=== PATIENT | female | born 1985 | race Caucasian/White ===

== ENCOUNTER 2024-09-03 21:17 | Emergency (ER) | payer OTHER ==
[2024-09-03 21:27] VITALS: TEMP 97.5
--- NOTE | 2024-09-03 21:52 | XR ---
EXAMINATION TYPE: XR foot complete LT DATE OF EXAM: 09/03/2024 9:46 PM COMPARISON: None available. CLINICAL INDICATION: Female, 38 years old with history of pain,laceration; [facility] TECHNIQUE: XR foot complete LT examined in the AP, oblique, and lateral projections. FINDINGS: Apparent soft tissue laceration adjacent to the fifth digit metatarsal. No acute fracture or dislocat ion. No unexpected radiopaque foreign body. Enthesophyte along the plantar calcaneal surface. IMPRESSION: No acute osseous abnormality in the left foot. [facility], , 09/03/2024 9:50 PM
--- NOTE | 2024-09-03 21:54 | ED ---
Wound/Laceration HPI - General Chief Complaint: Wound/Laceration Stated Complaint: L Foot Injury Time Seen by Provider: 09/03/24 21:54 Source: patient, RN notes reviewed Mode of arrival: wheelchair Limitations: no limitations - History of Present Illness Initial Comments: 38-year-old female presented to the ER with a chief complaint of a left foot wound. Patient reports she attempted to open the bathroom door and accidentally hit the top of her left foot. She reports a laceration to her left lateral foot. She is not on any blood thinners. Patient states she has never received tetanus vaccination. Patient denies any other injuries. Denies any limited range of motion. No other injuries or complaints at this time. - Related Data Allergies Allergy/AdvReac Type Severity Reaction Status Date / Time amoxicillin Allergy Rash/Hives Verified 09/03/24 21:27 cefaclor [From Ceclor] Allergy Rash/Hives Verified 09/03/24 21:27 erythromycin base Allergy Rash/Hives Verified 09/03/24 21:27 Review of Systems ROS Statement: Those systems with pertinent positive or pertinent negative responses have been documented in the HPI. ROS Other: All systems not noted in ROS Statement are negative. Past Medical History Past Medical History: No Reported History History of Any Multi-Drug Resistant Organisms: None Reported Past Surgical History: No Surgical Hx Reported Past Psychological History: No Psychological Hx Reported Smoking Status: Vaper Past Alcohol Use History: Occasional Past Drug Use History: Marijuana General Exam Limitations: no limitations General appearance: alert, in no apparent distress Respiratory exam: Present: normal lung sounds bilaterally. Absent: respiratory distress, wheezes, rales, rhonchi, stridor Cardiovascular Exam: Present: regular rate, normal rhythm, normal heart sounds. Absent: systolic murmur, diastolic murmur, rubs, gallop, clicks Extremities exam: Present: normal inspection, full ROM, normal capillary refill, other (3 cm flap laceration to left dorsal lateral foot overlying fourth and fifth metatarsal. No active bleeding. Deep structures intact. 2+ left DP and PT pulse. Sensation intact). Absent: tenderness, pedal edema, joint swelling, calf tenderness Neurological exam: Present: alert, oriented X3, CN II-XII intact Skin exam: Present: warm, dry, intact, normal color. Absent: rash Course Vital Signs 09/03/24 09/03/24 21:24 22:55 Temperature 97.5 F L Pulse Rate 78 69 Respiratory 20 22 Rate Blood Pressure 153/95 134/85 O2 Sat by Pulse 99 100 Oximetry Procedures - Laceration Laceration #1 Consent Obtained: verbal consent Indication: laceration Site: foot Size (cm): 3 Description: flap Depth: simple, single layer Anesthetic Used: lidocaine 1%, without epi Anesthesia Technique: local infiltration Amount (mls): 3 Pre-repair: wound explored, irrigated extensively, deep structures intact Type of Sutures: nylon Size of Sutures: 5-0 Number of Sutures: 6 Technique: simple, interrupted Patient Tolerated Procedure: well Medical Decision Making - Medical Decision Making Was pt. sent in by a medical professional or institution (, PA, TRAINING AND DEVELOPMENT PROFESSIONAL, urgent care, hospital, or [facility]...) When possible be specific @ -No Did you speak to anyone other than the patient for history (EMS, parent, family, police, friend...)? What history was obtained from this source @ -No Did you review nursing and triage notes (agree or disagree)? Why? @ -I reviewed and agree with nursing and triage notes Were old charts reviewed (outside hosp., previous admission, EMS record, old EKG, old radiological studies, urgent care reports/EKG's, [facility] records)? Report findings @ -No old charts were reviewed Differential Diagnosis (chest pain, altered mental status, abdominal pain women, abdominal pain men, vaginal bleeding, weakness, fever, dyspnea, syncope, headache, dizziness, GI bleed, back pain, seizure, CVA, palpatations, mental health, musculoskeletal)? @ -Laceration, abrasion, contusion, avulsion, foreign body this list is not meant to be all-inclusive EKG interpreted by me (3pts min.). @ -None done X-rays interpreted by me (1pt min.). @ -Left foot x-ray interpreted by me negative for acute fractures or dislocations. CT interpreted by me (1pt min.). @ -None done U/S interpreted by me (1pt. min.). @ -None done What testing was considered but not performed or refused? (CT, X-rays, U/S, labs)? Why? @ -None What meds were considered but not given or refused? Why? @ -None Did you discuss the management of the patient with other professionals (professionals i.e. , PA, TRAINING AND DEVELOPMENT PROFESSIONAL, lab, RT, psych nurse, social services assistant, industrial controls technician, teacher, financial services officer, case filler)? Give summary @ -No Was smoking cessation discussed for >3mins.? @ -No Was critical care preformed (if so, how long)? @ -No Were there social determinants of health that impacted care today? How? (Homelessness, low income, unemployed, alcoholism, drug addiction, transportation, low edu. Level, literacy, decrease access to med. care, halfway, rehab)? @ -No Was there de-escalation of care discussed even if they declined (Discuss DNR or withdrawal of care, Hospice)? DNR status @ -No What co-morbidities impacted this encounter? (DM, HTN, Smoking, COPD, CAD, Cancer, CVA, ARF, Chemo, Hep., AIDS, mental health diagnosis, sleep apnea, morbid obesity)? @ -None Was patient admitted / discharged? Hospital course, mention meds given and route, prescriptions, significant lab abnormalities, going to OR and other pertinent info. @ -Discharge. 38-year-old female presenting to the ER with a chief complaint of left foot laceration. History and physical exam completed. Vital stable. Patient in no signs of acute distress nontoxic-appearing. Exam remarkable for a 3 cm flap laceration to left lateral foot overlying fourth and fifth metatarsals. Left lower extremity neurovascular intact. Patient has full range of motion. Minimal active bleeding. Tetanus updated. X-ray obtained negative for acute osseous process and/or radiopaque foreign body. Laceration closed, see note above. Suture care discussed. Advise removal in 10 to 14 days. Strict return parameters discussed. Patient discharged in stable condition with follow-up to PCP. Patient verbally expressed understanding and agreement with care plan. Case discussed with ED attending, Dr. Carpio. Undiagnosed new problem with uncertain prognosis? @ -No Drug Therapy requiring intensive monitoring for toxicity (Heparin, Nitro, Insulin, Cardizem)? @ -No Were any procedures done? @ -Yes, laceration repair Diagnosis/symptom? @ -Laceration Acute, or Chronic, or Acute on Chronic? @ -Acute Uncomplicated (without systemic symptoms) or Complicated (systemic symptoms)? @ -Uncomplicated Side effects of treatment? @ -No Exacerbation, Progression, or Severe Exacerbation? @ -No Poses a threat to life or bodily function? How? (Chest pain, [place], [place], pneumonia, PE, COPD, DKA, ARF, appy, cholecystitis, CVA, Diverticulitis, Homicidal, Suicidal, threat to staff... and all critical care pts) @ -No - Radiology Data Radiology results: report reviewed, image reviewed Disposition Clinical Impression: Laceration Disposition: HOME SELF-CARE Condition: Stable Instructions (If sedation given, give patient instructions): Care For Your Stitches (DC) Additional Instructions: Have sutures removed in 10 to 14 days. Keep area clean and dry. Monitor for any surrounding redness, drainage, increase in pain or swelling. Follow-up with PCP. Return to the ER for any new or worse concerns. Is patient prescribed a controlled substance at d/c from ED?: No Referrals: None,Stated [Primary Care Provider] - 1-2 days Forms: [facility] PCPs Time of Disposition: 22:44
[2024-09-03] MEDS: DIPH,PERTUS(ACELL)TETVAC-LF 0.5 ML VIAL IM ONE (22:10)
[2024-09-03] MEDS: LIDOCAINE 1% INJ 10MG/ML (20 ML MDV) SQ ONE (22:37)
[2024-09-03 23:07] VITALS: BP 134/85; PULSE 69; RESP 22
== END 2024-09-03 22:55 | disposition home or self-care (01) ==
LOC: EC 21:17
DX: S99.922A Unspecified injury of left foot, initial encounter (principal); F17.290 Nicotine dependence, other tobacco product, uncomplicated; Z88.0 Allergy status to penicillin; Z88.1 Allergy status to other antibiotic agents; Z88.8 Allergy status to other drugs, medicaments and biological substances; Z23 Encounter for immunization; W22.09XA Striking against other stationary object, initial encounter
CPT/HCPCS: 73630; 90715; 12002; 90471; 99282; J2003

== ENCOUNTER 2024-11-12 00:15 | Emergency (ER) | payer OTHER ==
[2024-11-12] MEDS: ACETAMINOPHEN TAB 325 MG TAB PO STA (00:49)
--- NOTE | 2024-11-12 00:53 | ED ---
Upper Extremity HPI - General Chief Complaint: Extremity Injury, Upper Stated Complaint: L Arm Injury Time Seen by Provider: 11/12/24 00:52 Source: patient, RN notes reviewed Mode of arrival: ambulatory Limitations: no limitations - History of Present Illness Initial Comments: 38-year-old female presented to the ER for evaluation of left forearm pain. Patient states she had a couple drinks this evening including 5 shots and 3 beers. She states she was attempting to take a shower and upon exiting shower she accidentally slipped on the bath mat causing her to land with an outstretched left hand. Patient does report feeling 3 pops in her elbow. She is endorsing a consistent pain to her left forearm rating it a 8 out of 10. She states it is a pulling pain radiating from elbow to wrist. She denies any paresthesias to left upper extremity. Patient states she accidentally grazed her lip on the toilet paper llanos but denies head injury, loss of consciousness or blood thinner use. Tetanus is UTD. Patient does report she laid on the ground for a little bit until the pain subsided enough for her to come to the ER for evaluation. No other injuries or complaints. - Related Data Previous Rx's Medication Instructions Recorded Clindamycin [Cleocin] 450 mg PO Q8HR #45 cap 09/18/24 Fluconazole 150 mg PO ONCE #2 tab 09/18/24 Allergies Allergy/AdvReac Type Severity Reaction Status Date / Time amoxicillin Allergy Rash/Hives Verified 09/18/24 10:41 cefaclor [From Ceclor] Allergy Rash/Hives Verified 09/18/24 10:41 erythromycin base Allergy Rash/Hives Verified 09/18/24 10:41 Review of Systems ROS Statement: Those systems with pertinent positive or pertinent negative responses have been documented in the HPI. ROS Other: All systems not noted in ROS Statement are negative. Past Medical History Past Medical History: No Reported History History of Any Multi-Drug Resistant Organisms: None Reported Past Surgical History: Tonsillectomy Past Psychological History: No Psychological Hx Reported Smoking Status: Vaper Past Alcohol Use History: Occasional Past Drug Use History: Marijuana General Exam Limitations: no limitations General appearance: alert, in no apparent distress, appears intoxicated Respiratory exam: Present: normal lung sounds bilaterally. Absent: respiratory distress, wheezes, rales, rhonchi, stridor Cardiovascular Exam: Present: regular rate, normal rhythm, normal heart sounds. Absent: systolic murmur, diastolic murmur, rubs, gallop, clicks Extremities exam: Present: normal inspection, full ROM, tenderness (Left medial epicondyle.), normal capillary refill (2+ left radial pulse.), other (No anatomical snuffbox tenderness.) Neurological exam: Present: alert, oriented X3, CN II-XII intact Skin exam: Present: warm, dry, intact, normal color. Absent: rash Course Vital Signs 11/12/24 11/12/24 11/12/24 00:17 01:28 03:00 Temperature 99.2 F 98.1 F Pulse Rate 107 H 89 85 Respiratory 20 19 18 Rate Blood Pressure 156/104 128/87 135/88 O2 Sat by Pulse 100 100 100 Oximetry Medical Decision Making - Medical Decision Making Was pt. sent in by a medical professional or institution (, PA, CASE THERAPIST, urgent care, hospital, or prison...) When possible be specific @ -No Did you speak to anyone other than the patient for history (EMS, parent, family, police, friend...)? What history was obtained from this source @ -No Did you review nursing and triage notes (agree or disagree)? Why? @ -I reviewed and agree with nursing and triage notes Were old charts reviewed (outside hosp., previous admission, EMS record, old EKG, old radiological studies, urgent care reports/EKG's, prison records)? Report findings @ -No old charts were reviewed Differential Diagnosis (chest pain, altered mental status, abdominal pain women, abdominal pain men, vaginal bleeding, weakness, fever, dyspnea, syncope, headache, dizziness, GI bleed, back pain, seizure, CVA, palpatations, mental health, musculoskeletal)? @ -Differential Musculoskeletal: Muscular strain, contusion, ligament sprain, fracture, arthritis, septic arthritis, bursitis, cellulitis, muscle spasm, nerve compression, DVT, arterial occlusion, herpes zoster, electrolyte abnormality, tumor.... This is not meant to be in all inclusive list EKG interpreted by me (3pts min.). @ -None done X-rays interpreted by me (1pt min.). @ -Left forearm x-ray interpreted me negative for acute fractures or dislocations. Right hand x-ray negative for acute fractures. CT interpreted by me (1pt min.). @ -None done U/S interpreted by me (1pt. min.). @ -None done What testing was considered but not performed or refused? (CT, X-rays, U/S, labs)? Why? @ -None What meds were considered but not given or refused? Why? @ -None Did you discuss the management of the patient with other professionals (professionals i.e. DrMary Jane, PA, CASE THERAPIST, lab, RT, psych nurse, sexual assault social worker, car stereo installer, teacher, surveillance sensor officer, immigration case manager)? Give summary @ -No Was smoking cessation discussed for >3mins.? @ -No Was critical care preformed (if so, how long)? @ -No Were there social determinants of health that impacted care today? How? (Homelessness, low income, unemployed, alcoholism, drug addiction, transportation, low edu. Level, literacy, decrease access to med. care, [facility], rehab)? @ -No Was there de-escalation of care discussed even if they declined (Discuss DNR or withdrawal of care, Hospice)? DNR status @ -No What co-morbidities impacted this encounter? (DM, HTN, Smoking, COPD, CAD, Cancer, CVA, ARF, Chemo, Hep., AIDS, mental health diagnosis, sleep apnea, morbid obesity)? @ -Patient was intoxicated Was patient admitted / discharged? Hospital course, mention meds given and route, prescriptions, significant lab abnormalities, going to OR and other pertinent info. @ -Discharge. 38-year-old female presented to the ER for evaluation of a fall and left forearm pain. Upon examination, patient resting company in exam room no signs of acute distress. Patient does appear intoxicated. Patient denied any other injuries from fall. Patient is neurovascularly intact. There is tenderness noted over medial left epicondyle. No anatomical snuffbox tenderness. No overlying skin changes. X-rays obtained negative for acute process. Patient given symptomatic control in the ER with Tylenol. Patient is stable for discharge upon reevaluation. Sling provided for comfort. Strict return parameters discussed. Patient discharged in stable condition with follow-up to orthopedics, referral given. Patient verbally expressed understanding agree with care plan. Case discussed with Ed attending, Dr. Vance. Undiagnosed new problem with uncertain prognosis? @ -No Drug Therapy requiring intensive monitoring for toxicity (Heparin, Nitro, Insulin, Cardizem)? @ -No Were any procedures done? @ -No Diagnosis/symptom? @ -Fall/forearm pain Acute, or Chronic, or Acute on Chronic? @ -Acute Uncomplicated (without systemic symptoms) or Complicated (systemic symptoms)? @ -Uncomplicated Side effects of treatment? @ -No Exacerbation, Progression, or Severe Exacerbation? @ -No Poses a threat to life or bodily function? How? (Chest pain, [place], [place], pneumonia, PE, COPD, DKA, ARF, appy, cholecystitis, CVA, Diverticulitis, Homicidal, Suicidal, threat to staff... and all critical care pts) @ -No Disposition Clinical Impression: Forearm pain Disposition: HOME SELF-CARE Condition: Stable Instructions (If sedation given, give patient instructions): Elbow Sprain (ED) Additional Instructions: Follow-up with orthopedics if symptoms persist. Return to the ER for new or worsening concerns. Is patient prescribed a controlled substance at d/c from ED?: No Referrals: None,Stated [Primary Care Provider] - 1-2 days Robbie Azul DO [Doctor of Osteopathic Medicine] - 1-2 days Forms: [facility] PCPs Time of Disposition: 02:56
[2024-11-12 01:58] VITALS: TEMP 98.1
--- NOTE | 2024-11-12 02:05 | XR ---
EXAM: XR Left Hand Complete, 3 or More Views CLINICAL HISTORY: ITS.REASON XR Reason: fall injjury TECHNIQUE: Frontal, lateral and oblique views of the left hand. COMPARISON: No relevant prior studies available. FINDINGS: Bones/joints: Old ulnar styloid fracture fragment. No dislocation. Old fracture of the distal radius. Soft tissues: Unremarkable. No radiopaque foreign body. IMPRESSION: No acute findings in the left hand.
--- NOTE | 2024-11-12 02:05 | XR ---
EXAM: XR Left Forearm, 2 Views CLINICAL HISTORY: ITS.REASON XR Reason: fall injjury TECHNIQUE: Frontal and lateral views of the left forearm. COMPARISON: No relevant prior studies available. FINDINGS: Bones/joints: Old ulnar sided fracture fragment. No dislocation. Soft tissues: Unremarkable. IMPRESSION: No acute findings in the left forearm.
[2024-11-12 03:11] VITALS: BP 135/88; PULSE 85; RESP 18
== END 2024-11-12 03:13 | disposition home or self-care (01) ==
LOC: EC 00:15
DX: M79.632 Pain in left forearm (principal); F10.129 Alcohol abuse with intoxication, unspecified; F17.290 Nicotine dependence, other tobacco product, uncomplicated; Z88.0 Allergy status to penicillin; Z88.1 Allergy status to other antibiotic agents; X50.9XXA Other and unspecified overexertion or strenuous movements or postures, initial encounter
CPT/HCPCS: 99283